=== PATIENT | male | born 1945 | race Caucasian/White ===

== ENCOUNTER → 2020-10-04 | Day surgery (SDC) | payer MEDICARE, BC ==
[2020-09-29 15:15] LABS: CLARITY,URINE CLEAR (Clear); COLOR,URINE YELLOW (Yellow); GLUCOSE, URINE NEGATIVE (Neg); KETONES,URINE NEGATIVE (Neg); LEUKOCYTE ESTERASE ,URINE NEGATIVE (Neg); NITRITES, URINE NEGATIVE (Neg); OCCULT BLOOD,URINE MODERATE (Neg); PH,URINE 5.5 (4.8-8.0); PROTEIN,URINE NEGATIVE (Neg)
[2020-09-29 15:16] LABS: UA COLLECTION TYPE CLN CATCH MIDSTREAM
[2020-09-29 15:24] LABS: BASOPHILS % (AUTO) 0.6 % (0-1); EOSINOPHILS # (AUTO) 0.1 X10'3 (0-0.9); EOSINOPHILS % (AUTO) 2.5 % (0-6); LYMPHOCYTES # (AUTO) 1.1 X10'3 (1.1-4.8); LYMPHOCYTES % (AUTO) 21.9 % (21-51); MEAN CORPUSCULAR HEMOGLOBIN 33.7 PG (27.0-31.0); MEAN CORPUSCULAR HGB CONC 34.1 g/dL (33.0-36.5); MEAN CORPUSCULAR VOLUME 98.8 FL (78-98); MONOCYTES # (AUTO) 0.4 X10'3 (0-0.9); NEUTROPHILS # (AUTO) 3.4 X10'3 (1.8-7.7); PRE OP HEMATOCRIT 43.8 % (42.0-52.0); PRE OP HEMOGLOBIN 14.9 g/dL (14.0-17.9); PRE OP PLATELET COUNT 210 X10'3 (140-440); RED BLOOD COUNT 4.43 X10'6 (4.70-6.10); RED CELL DISTRIBUTION WIDTH 12.8 % (11.5-14.5)
[2020-09-29 15:31] LABS: ALBUMIN 3.7 G/DL (3.4-5.0); ALBUMIN/GLOBULIN RATIO 1.2 (1.1-1.5); ALKALINE PHOSPHATASE 84 IU/L (46-116); BLOOD UREA NITROGEN 13 MG/DL (7-18); BUN/CREATININE RATIO 11.9 (5.4-32.0); CALCIUM 8.7 MG/DL (8.5-10.1); CHLORIDE 107 MMOL/L (99-107); CREATININE 1.09 MG/DL (0.60-1.10); PRE OP ALT 31 U/L (30-65); PRE OP ANION GAP 10 (8-16); PRE OP AST 23 U/L (10-37); PRE OP BILIRUB, TOTAL 0.9 MG/DL (0.0-1.0); PRE OP GLUCOSE 110 MG/DL (70-104); PRE OP SODIUM 145 MMOL/L (135-145); TOTAL CARBON DIOXIDE 28.4 MMOL/L (24-32); TOTAL PROTEIN 6.9 G/DL (6.4-8.2); eGFR 66 ML/MIN
[2020-09-29 15:34] LABS: BACTERIA,URINE NONE SEEN /HPF (Neg); MUCUS STRANDS FEW /LPF (Neg); SQUAMOUS EPITHELIAL CELL,UR NONE SEEN /LPF (FEW); WBC,URINE NONE SEEN /HPF (0-4)
[2020-10-04] VITALS (21 sets, daily range): BP systolic 89–149; BP diastolic 47–96
[~2020-10-04] VITALS: Ht 182.9 cm; Wt 97.2 kg
[~2020-10-04] MED LIST: ASPI-12 PO; ATOR40TA PO; BUPIVAcaine/PF 2.5 mg/ml (0.25%) 30ml vial ONE; LACT1CAP65 PO; LIDOcaine 2% (20mg/ml) 5ml vial ONE; OMEG10006 PO; PANT-47 PO; PHENYLephrine 50 MG in NS 250ml IV soln IV SCH; cefazolin/dext.iso 2gm/100ml IV ONE; dexamethasone sod phosphate 10mg/ml inj ONE; famotidine 20mg tablet PO ONE; fentaNYL /PF 50mcg/ml 5ml ampule ONE; glycopyrrolate 0.2mg/ml inj ONE; meperidine/PF 25mg/ml syringe IV PRN; midazolam 1 mg/ML 2ml injection ONE; morphine 2 MG/ML inj. syringe IV PRN; morphine 4 MG/ML inj SYRINge IV PRN; neostigmine methylsulfate 1 MG/ML 10ml vial ONE; nitroPRUSSIDE 20mg in NS 100 ML IV SCH; ondansetron/PF 4mg/2ml inj IV PRN; ondansetron/PF 4mg/2ml inj ONE; proCHLORperazine 10 MG/2 ml inj IV PRN; propofol inj 20 ML IV ONE; ringers solution, lacted 1,000 ML IV SCH; rocuronium 10mg/ml inj IV ONE; sevoflurane 250ml liquid IH ONE
--- NOTE | 2020-10-04 09:42 | NUR ---
Received from OR via , accompanied by Anesthesiologist DR MCCALL and report given by Anesthesiolgist. PT PRESENTS WITH PIV 20G LEFT HAND, WITH LEFT INGUINAL HERNIA REPAIR,3 ABD INCISIONS. VSS. Addendum: 10/04/20 at 1040 by Lori Ortiz RN, RN Amended: Links added.
--- NOTE | 2020-10-04 12:07 | NUR ---
PT IS TRYING TO GET AHOLD OF HIS WITH NO SUCESS AT THIS TIME. PT WILL CONTINUE TO CALL FROM PT'S CELL PHONE. Addendum: 10/04/20 at 1215 by Lori Ortiz RN, RN Amended: Links added.
--- NOTE | 2020-10-04 12:42 | NUR ---
PT VOIDED FOR 10-15 SECONDS, BLADDER SCANNED AND 0 MLS.IN BLADDER Addendum: 10/04/20 at 1738 by Lori Ortiz RN, RN Amended: Links added.
== END | disposition home or self-care (01) ==
LOC: PAS 06:00
PROVIDERS: ATTEND Surgery
DX: K40.90 Unilateral inguinal hernia, without obstruction or gangrene, not specified as recurrent (principal); K21.9 Gastro-esophageal reflux disease without esophagitis; Z86.010 Personal history of colon polyps; I49.5 Sick sinus syndrome; F41.9 Anxiety disorder, unspecified; E78.00 Pure hypercholesterolemia, unspecified; G47.30 Sleep apnea, unspecified; Z98.890 Other specified postprocedural states; Z88.6 Allergy status to analgesic agent; Z95.0 Presence of cardiac pacemaker
CPT/HCPCS: 36415; 49650; 71046; 80053; 81001; 82948; 85025; C1758; C1781; J1100; J2001; J2250; J2405; J2704; J2710; J3010; J3490; J7120; A4215; A4618

== ENCOUNTER 2023-08-26 18:06 | Emergency (ER) | payer MEDICARE, BC ==
[~2023-08-26] VITALS: Ht 182.9 cm; Wt 101.0 kg
[~2023-08-26 18:06] MED LIST changes: -BUPIVAcaine/PF 2.5 mg/ml (0.25%) 30ml vial ONE; -LIDOcaine 2% (20mg/ml) 5ml vial ONE; -PHENYLephrine 50 MG in NS 250ml IV soln IV SCH; -cefazolin/dext.iso 2gm/100ml IV ONE; -dexamethasone sod phosphate 10mg/ml inj ONE; -famotidine 20mg tablet PO ONE; -fentaNYL /PF 50mcg/ml 5ml ampule ONE; -glycopyrrolate 0.2mg/ml inj ONE; -meperidine/PF 25mg/ml syringe IV PRN; -midazolam 1 mg/ML 2ml injection ONE; -morphine 2 MG/ML inj. syringe IV PRN; -morphine 4 MG/ML inj SYRINge IV PRN; -neostigmine methylsulfate 1 MG/ML 10ml vial ONE; -nitroPRUSSIDE 20mg in NS 100 ML IV SCH; -ondansetron/PF 4mg/2ml inj IV PRN; -ondansetron/PF 4mg/2ml inj ONE; -proCHLORperazine 10 MG/2 ml inj IV PRN; -propofol inj 20 ML IV ONE; -ringers solution, lacted 1,000 ML IV SCH; -rocuronium 10mg/ml inj IV ONE; -sevoflurane 250ml liquid IH ONE
[2023-08-26 18:20] VITALS: BP 136/65; PULSE 73; RESP 20; TEMP 99; O2SAT 97
[2023-08-26] MEDS: TETanus/Pertussis (Acell)/Diphther VAC/PF (Tdap-Adult) 0.5ml syringe IMVAC ONE (20:15)
== END 2023-08-26 20:30 | disposition home or self-care (01) ==
LOC: ER 18:06
DX: S00.01XA Abrasion of scalp, initial encounter (principal); R51.9 Headache, unspecified; Z88.5 Allergy status to narcotic agent; Z79.82 Long term (current) use of aspirin; W19.XXXA Unspecified fall, initial encounter; Y93.89 Activity, other specified; Y92.89 Other specified places as the place of occurrence of the external cause; Y99.8 Other external cause status
CPT/HCPCS: 70450; 90471; 90715; 99285